=== PATIENT | female | born 1980 | race Caucasian/White ===

== ENCOUNTER 2017-01-14 22:06 | Inpatient (IN) | payer OTHER ==
[~2017-01-14] VITALS: Ht 172.7 cm; Wt 89.5 kg
[~2017-01-14 22:06] MED LIST: DOCU-30 PO; FLUC150T PO; IBUP-1222 PO; LABE300T PO; METH250T PO; OXYC-302 PO
[2017-01-14] MEDS ORDERED: LABETALOL 5MG/ML, 20ML ONE (22:58)
[2017-01-14] MEDS ORDERED: LABETALOL 5MG/ML, 20ML IVPush ONE (23:00)
[2017-01-14] MEDS ORDERED: SODIUM CHLORIDE 0.9% 1,000ML IVBOLUS ONE (23:00)
[2017-01-14 23:19] LABS: PH, VENOUS 7.366 pH (7.320-7.420)
[2017-01-14] MEDS ORDERED: INSU100C5 SQ-INSULIN ×2 (23:19→23:20)
[2017-01-14] MEDS ORDERED: INSU100V13 SQ (23:19)
[2017-01-14] MEDS ORDERED: LOSA100T6 PO (23:19)
[2017-01-14 23:20] LABS: HEMOGLOBIN 15.7 g/dL (11.7-16.4)
[2017-01-15 00:11] LABS: ASPARTATE AMINO TRANSFERASE 32 U/L (15-37); BLOOD UREA NITROGEN 13 mg/dL (7-18)
[2017-01-15] MEDS ORDERED: ACETAMINOPHEN 325 MG TABLET ONE (00:11)
[2017-01-15] MEDS ORDERED: ACETAMINOPHEN 325 MG TABLET PO ONE (00:30)
[2017-01-15] MEDS ORDERED: CEFTRIAXONE PMX 1GM/50ML 50 ML ONE (00:48)
[2017-01-15] MEDS ORDERED: AZITHROMYCIN 500 MG in SODIUM CHLORIDE 0.9% 250 ML IV ONE (01:00)
[2017-01-15] MEDS ORDERED: CEFTRIAXONE PMX 1GM/50ML 50 ML IV ONE (01:00)
[2017-01-15] MEDS ORDERED: SODIUM CHLORIDE 0.9% 1,000ML IVBOLUS ONE (02:00)
[2017-01-15] MEDS ORDERED: FLUCONAZOLE 100 MG TABLET PO ONE (02:00)
[2017-01-15] MEDS ORDERED: OMNIPAQUE 350 MG/ML, 100ML BOTTLE ONE (02:16)
[2017-01-15] MEDS ORDERED: GLUCAGON 1 MG IM PRN (05:30)
[2017-01-15] MEDS ORDERED: ACETAMINOPHEN 325 MG TABLET PO PRN (05:30)
[2017-01-15] MEDS ORDERED: DEXTROSE 4 GM TAB.CHEW PO PRN (05:30)
[2017-01-15] MEDS ORDERED: DEXTROSE 50%, 50ML SYRINGE IVPush PRN (05:30)
[2017-01-15] MEDS: SODIUM CHLORIDE 0.9% 1,000 ML IV SCH ×2 (06:17→12:14)
[2017-01-15 06:23] VITALS: BP 148/89
[2017-01-15 06:38] VITALS: BP 130/86
[2017-01-15 07:55] VITALS: BP 145/82
[2017-01-15] MEDS: SODIUM CHLORIDE FLUSH 10ML SYR IVF SCH ×2 (07:58→20:43)
[2017-01-15] MEDS: IBUPROFEN 200 MG TABLET PO PRN ×2 (09:07→16:22)
[2017-01-15] MEDS: INSULIN ASPART 100 UNITS/ML, PEN SQ-INSULIN SCH ×4 (09:08→20:45)
[2017-01-15 14:40] VITALS: BP 134/84
[2017-01-15] MEDS ORDERED: ALBUTEROL SULFATE 2.5 MG/3 ML NPPB PRN (16:30)
[2017-01-15 19:35] VITALS: BP 144/87
[2017-01-15] MEDS ORDERED: INSULIN DETEMIR 100 UNITS/ML, PEN SQ-INSULIN SCH (21:00)
[2017-01-15] MEDS: AZITHROMYCIN 250 MG TABLET PO SCH (22:04)
[2017-01-15] MEDS: LOSARTAN 50MG TABLET PO SCH (22:07)
[2017-01-16] MEDS: IBUPROFEN 200 MG TABLET PO PRN (00:32)
[2017-01-16] MEDS: CEFTRIAXONE PMX 2GM/50ML 50 ML IV SCH (00:50)
[2017-01-16] MEDS: GUAIFENESIN 100 MG/5 ML, 5ML UDC PO PRN ×2 (01:46→21:30)
[2017-01-16 02:50] VITALS: BP 152/105
[2017-01-16] MEDS ORDERED: SODIUM CHLORIDE 0.9% 1,000 ML IV SCH (05:10)
[2017-01-16 06:56] LABS: BLOOD UREA NITROGEN 9 mg/dL (7-18)
[2017-01-16 07:40] VITALS: BP 130/80
[2017-01-16] MEDS: INSULIN ASPART 100 UNITS/ML, PEN SQ-INSULIN SCH ×4 (08:51→21:33)
[2017-01-16] MEDS: SODIUM CHLORIDE FLUSH 10ML SYR IVF SCH ×2 (08:51→21:33)
[2017-01-16] MEDS: LOSARTAN 50MG TABLET PO SCH ×2 (09:00→21:31)
[2017-01-16] MEDS ORDERED: DEXTROMETHORPHAN 30 MG/5 ML ORAL SOL PO PRN (11:00)
[2017-01-16] MEDS: IBUPROFEN 600 MG TABLET PO PRN (11:57)
[2017-01-16] MEDS: ENOXAPARIN 40 MG/0.4 ML SQ SCH (12:06)
[2017-01-16 15:19] VITALS: BP 154/98
[2017-01-16 21:00] VITALS: BP 163/108
[2017-01-16] MEDS: AZITHROMYCIN 250 MG TABLET PO SCH (21:30)
[2017-01-16] MEDS: INSULIN DETEMIR 100 UNITS/ML, PEN SQ-INSULIN SCH (21:32)
[2017-01-17] MEDS: CEFTRIAXONE PMX 2GM/50ML 50 ML IV SCH (00:12)
[2017-01-17 00:40] VITALS: BP 142/94
[2017-01-17 03:25] VITALS: BP 136/91
[2017-01-17 07:36] VITALS: BP 133/87
[2017-01-17] MEDS ORDERED: INSULIN DETEMIR 100 UNITS/ML, PEN SQ-INSULIN SCH (09:00)
[2017-01-17] MEDS: AZITHROMYCIN 250 MG TABLET PO SCH (09:13)
[2017-01-17] MEDS: INSULIN DETEMIR 100 UNITS/ML, PEN SQ-INSULIN SCH (09:14)
[2017-01-17] MEDS: INSULIN ASPART 100 UNITS/ML, PEN SQ-INSULIN SCH ×2 (09:14→12:07)
[2017-01-17] MEDS: GUAIFENESIN 100 MG/5 ML, 5ML UDC PO PRN (09:16)
[2017-01-17] MEDS: SODIUM CHLORIDE FLUSH 10ML SYR IVF SCH (09:18)
[2017-01-17] MEDS: ENOXAPARIN 40 MG/0.4 ML SQ SCH (11:37)
[2017-01-17] MEDS: IBUPROFEN 600 MG TABLET PO PRN (12:11)
[2017-01-17 14:43] VITALS: BP 147/95
[2017-01-17] MEDS ORDERED: INSU100V13 SQ (15:45)
[2017-01-17] MEDS ORDERED: PRED20TA PO (15:45)
[2017-01-17] MEDS ORDERED: AZIT-14 PO (15:45)
[2017-01-17] MEDS ORDERED: INSU100C5 SQ-INSULIN (15:45)
[2017-01-17] MEDS ORDERED: CEFD300C2 PO (16:36)
== END 2017-01-17 18:31 | disposition home or self-care (01) | DRG 195 ==
LOC: ED 23:59 → INTOOBSV 01-15 04:25 → EDIP 01-15 04:25 → 5SO 01-15 05:43 → OBSVTOIN 01-15 14:30
PROVIDERS: ADMIT Family Medicine; ATTEND Family Medicine
PROC: 0T9B70Z Drainage of Bladder with Drainage Device, Via Natural or Artificial Opening (ICD-10-PCS; principal; 2017-01-15)
DX: J18.9 Pneumonia, unspecified organism (principal); I10 Essential (primary) hypertension; E11.65 Type 2 diabetes mellitus with hyperglycemia; Z79.4 Long term (current) use of insulin; J06.9 Acute upper respiratory infection, unspecified; R63.0 Anorexia; R00.0 Tachycardia, unspecified; J45.909 Unspecified asthma, uncomplicated
CPT/HCPCS: 36415; 71010; 71275; 80048; 80053; 81001; 82010; 82803; 82962; 83690; 83930; 84439; 84443; 85025; 87040; 87086; 93005; 94640; 96361; 96365; 96368; 96375; G0378; J0456; J0696; J1815; J7613; Q9967; J7030; J7050; J7512

== ENCOUNTER → 2017-02-10 | Outpatient (CLI) | payer OTHER ==
[~2017-02-10] MED LIST changes: +AZIT-14 PO; +CEFD300C2 PO; +INSU100C5 SQ-INSULIN; +INSU100V13 SQ; +LOSA100T6 PO; +PRED20TA PO
== END | disposition home or self-care (01) ==
LOC: CFH 07:48
PROVIDERS: ATTEND Nurse Practitioner Primary Care
DX: R74.8 Abnormal levels of other serum enzymes (principal); K76.0 Fatty (change of) liver, not elsewhere classified; D73.89 Other diseases of spleen; E11.9 Type 2 diabetes mellitus without complications; I10 Essential (primary) hypertension; F06.4 Anxiety disorder due to known physiological condition; F06.31 Mood disorder due to known physiological condition with depressive features; E55.9 Vitamin D deficiency, unspecified; J18.9 Pneumonia, unspecified organism; Z90.49 Acquired absence of other specified parts of digestive tract
CPT/HCPCS: 76700